=== PATIENT | female | born 1995 | race Caucasian/White ===

== ENCOUNTER 2022-07-25 20:24 | Emergency (ER) | payer SELFPAY ==
[~2022-07-25] VITALS: Ht 162.6 cm; Wt 83.0 kg
[2022-07-25 20:34] VITALS: BP 148/100
[2022-07-25] MEDS ORDERED: NALO4SPR3 NAS (21:07)
== END 2022-07-25 21:57 | disposition home or self-care (01) ==
LOC: ER 20:24
DX: T40.411A Poisoning by fentanyl or fentanyl analogs, accidental (unintentional), initial encounter (principal); I49.9 Cardiac arrhythmia, unspecified; Y92.9 Unspecified place or not applicable
CPT/HCPCS: 93005; 99283